=== PATIENT | male | born 1950 | race Caucasian/White ===

== ENCOUNTER 2018-04-15 12:23 | Emergency (ER) | payer BC, MEDICARE ==
--- NOTE | 2018-04-15 16:14 | UC ---
Favio Mayers Natalie, scribed for Rosi Sow MD on 04/15/18 at 1443 . Skin Complaint HPI - HPI Summary HPI Summary: The patient is a 68 y/o M presenting to [facility] c/o possible insect bite on the back of his right knee starting four days ago. The pt noticed his leg was itchy , and then the next day noticed that there was a lesion of small bumps starting to form, with worsening since onset. The pain is rated 2/10 in severity. He additionally c/o purulence from the lesion. He denies fevers and chills. He had been outside during the day of onset, and he has had tick bites in the past. He also had a similar experience in the past with a rash on his left leg which was a possible spider bite. 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 he is not sure if it was a tick or insect / spider. He takes Losartan for HTN. PCP is Dr. Hong. - History of Current Complaint Chief Complaint: [facility] Time Seen by Provider: 04/15/18 13:02 Stated Complaint: SKIN ISSUE Hx Obtained From: Patient Onset/Duration: Sudden Onset, Lasting Days - starting four days ago, Still Present Skin Exposure Onset/Duration: Days Ago Onset Severity: Mild Current Severity: Moderate Pain Intensity: 2 Pain Scale Used: 0-10 Numeric Location: Discrete - right back of knee Aggravating Factor(s): Nothing Alleviating Factor(s): Nothing Associated Signs & Symptoms: Negative: Fever, Chills Related History: Possible Reaction to: Insect - Allergy/Home Medications Allergies/Adverse Reactions: Allergies Allergy/AdvReac Type Severity Reaction Status Date / Time No Known Allergies Allergy Verified 04/15/18 12:57 Home Medications: Home Medications Losartan TAB* [Cozaar TAB*] 1 tab PO DAILY 04/15/18 [History Confirmed 04/15/18] Warfarin TAB(*) [Coumadin TAB(*)] 1 tab PO DAILY 04/15/18 [History Confirmed 05/26] Review of Systems Constitutional: Negative, Other - NEGATIVE: fevers, chills Skin: Other - erythematous lesions on back of right knee with some purulence Eyes: Negative ENT: Negative Respiratory: Negative Cardiovascular: Negative Gastrointestinal: Negative Genitourinary: Negative Motor: Negative Neurovascular: Negative Musculoskeletal: Negative Neurological: Negative Psychological: Negative Is Patient Immunocompromised?: No All Other Systems Reviewed And Are Negative: Yes PMH/Surg Hx/FS Hx/Imm Hx - Additional Past Medical History Additional PMH: POSITIVE: blood clot Other Endocrine History: NEGATIVE: diabetes Cardiovascular History: Hypertension Other Respiratory History: NEGATIVE: asthma Other GI/ History: negative Other Neurological History: negative Other Psychological History: negative Other Cancer History: negative - Surgical History Surgical History: Yes Surgery Procedure, Year, and Place: Throat - Social History Alcohol Use: Occasionally Substance Use Type: None Smoking Status (MU): Former Smoker Physical Exam - Summary Physical Exam Summary: Appearance: Well-Appearing, No Pain Distress, Well-Nourished Eyes: conjunctiva clear, no discharge ENT: Hearing grossly normal, no muffled/hoarse voice. Neck: Normal, Supple Respiratory/Lung Sounds: Lungs clear, Normal breath sounds, No respiratory distress, No accessory muscle use Cardiovascular: RRR, No murmur Abdomen: Nontender, Soft, no guarding, not distended Bowel Sounds: Present Musculoskeletal: Normal Neurological: Alert, muscle tone normal Psychiatric:Normal, age appropriate behavior Skin: Warm, Dry, Normal color, Posterior aspect of right knee: erythematous target lesion on the right popliteal fossa with honey crusting in center measuring 8cm by 5cm . No fluctuation or active drainage. Triage Information Reviewed: Yes Vital Signs: Initial Vital Signs Temp 97.8 F 04/15/18 12:52 Pulse 70 04/15/18 12:52 Resp 12 04/15/18 12:52 BP 137/74 04/15/18 12:52 Pulse Ox 100 04/15/18 12:52 Vital Signs Reviewed: Yes Course/Dx - Course Course Of Treatment: The patient is a 68 y/o M presenting to [facility] c/o erythematous lesion on the back of his right knee starting four days ago. The area was itchy, and then he noticed the next day that the lesion was forming. He reports that purulence was present starting yesterday. He denies fevers and chills. He has had tick bites in the past, but he doesn't think he was bitten recently. He had a similar lesion in the past for a possible spider bite. He takes Losarten for HTN and Warfarin for blood clots. Medications reviewed. No allergies noted. In the [facility] course, the patient will be tested for possible Lyme disease. Patient will be discharged home with instructions for Lyme disease , cellulitis, and abscess. We discussed the need to cover for possible lyme disease given the target appearance of the lesion. He is prescribed Doxycycline and is advised to follow up with his PCP in one week. Patient is agreeable with this plan. As per nurse, he declined the blood draw for lyme test. - Diagnoses Provider Diagnoses: Lyme disease, cellulitis, abscess Discharge - Sign-Out/Discharge Documenting (check all that apply): Discharge/Admit/Transfer - Pt will be discharged home. - Discharge Plan Condition: Stable Disposition: HOME Prescriptions: DOXYcycline CAP(*) [DOXYcycline 100MG CAP(*)] 100 mg PO BID 21 Days #42 cap Patient Education Materials: Lyme Disease (ED), Cellulitis (ED), Abscess (ED) Referrals: Hardeep Hong MD [Primary Care Provider] - 1 Week Additional Instructions: Start taking the antibiotic , has been prescribed to the pharmacy . Lab test is being done for lyme disease. Follow up with your primary care doctor in 1 week Return to Urgent care / ER if symptoms get worse. - Billing Disposition and Condition Condition: STABLE Disposition: Home The documentation as recorded by the Favio poon Natalie accurately reflects the service I personally performed and the decisions made by , Rosi Sow MD.
== END 2018-04-15 13:35 | disposition home or self-care (01) ==
LOC: UCEAST 12:23
DX: A69.20 Lyme disease, unspecified (principal); L03.115 Cellulitis of right lower limb; L02.415 Cutaneous abscess of right lower limb; Z86.718 Personal history of other venous thrombosis and embolism; Z79.01 Long term (current) use of anticoagulants; I10 Essential (primary) hypertension; Z87.891 Personal history of nicotine dependence
CPT/HCPCS: 99202; G0463